=== PATIENT | female | born 2000 | race African-American/Black ===

== ENCOUNTER 2021-06-18 16:37 | Emergency (ER) | payer OTHER ==
[~2021-06-18] VITALS: Ht 157.5 cm; Wt 52.0 kg
--- OUTSIDE RECORDS SUMMARY | 2021-06-18 18:09 | CCD ---
Author Author [facility] Address Unknown Phone Unavailable Support Name Relationship Address Phone [facility] Next Of Kin [address] [place] [address] Unavailable NICOL NGUYEN Next Of Kin [address], [place] [id number] Re-disclosure Warning The records that you are about to access may contain information from federally-assisted alcohol or drug abuse programs. If such information is present, then the following federally mandated warning applies: This information has been disclosed to you from records protected by federal confidentiality rules (42 CFR part 2). The federal rules prohibit you from making any further disclosure of this information unless further disclosure is expressly permitted by the written consent of the person to whom it pertains or as otherwise permitted by 42 CFR part 2. A general authorization for the release of medical or other information is NOT sufficient for this purpose. The Federal rules restrict any use of the information to criminally investigate or prosecute any alcohol or drug abuse patient.The records that you are about to access may contain highly sensitive health information, the redisclosure of which is protected by Article 27-F of the [place] Public Health law. If you continue you may have access to information: Regarding HIV / AIDS; Provided by facilities licensed or operated by the [place] [facility]; or Provided by the [place] Office for People With Developmental Disabilities. If such information is present, then the following [place] mandated warning applies: This information has been disclosed to you from confidential records which are protected by state law. State law prohibits you from making any further disclosure of this information without the specific written consent of the person to whom it pertains, or as otherwise permitted by law. Any unauthorized further disclosure in violation of state law may result in a fine or long term sentence or both. A general authorization for the release of medical or other information is NOT sufficient authorization for further disc losure. Medications No Information Insurance Providers Payer name Policy type / Coverage type Policy ID Covered republican ID Covered republican's relationship to cross Policy Cross Plan Information [facility] [employer] [id number] Problems, Conditions, and Diagnoses No Information Surgeries/Procedures No Information Results No Information Social History No Information
[2021-06-18 18:17] VITALS: BP 112/60
== END 2021-06-18 18:18 | disposition home or self-care (01) ==
LOC: M ED 16:37
DX: G44.209 Tension-type headache, unspecified, not intractable (principal)

== ENCOUNTER 2021-09-29 11:46 | Emergency (ER) | payer OTHER ==
[~2021-09-29] VITALS: Ht 152.4 cm; Wt 49.8 kg
[2021-09-29] MEDS ORDERED: TRAZ-252 PO (11:53)
[2021-09-29] MEDS ORDERED: MAXA10TA14 PO (11:54)
[2021-09-29 14:05] LABS: GC DNA AMPLIFICATION NEGATIVE (NEGATIVE)
[2021-09-29 14:32] VITALS: BP 120/69
== END 2021-09-29 14:43 | disposition home or self-care (01) ==
LOC: M ED 11:46
DX: Z20.2 Contact with and (suspected) exposure to infections with a predominantly sexual mode of transmission (principal); Z79.3 Long term (current) use of hormonal contraceptives

== ENCOUNTER 2022-11-21 08:15 | Emergency (ER) | payer OTHER ==
[~2022-11-21] VITALS: Ht 152.4 cm; Wt 49.1 kg
[~2022-11-21 08:15] MED LIST: RIZA10TA64 PO; TRAZ-252 PO
[2022-11-21] MEDS ORDERED: IBUP200C28 PO (08:33)
[2022-11-21 08:56] LABS: BASO % 0.9 % (0.0-1.0); EOS # 0.1 10^3/uL (0.0-0.5); EOS % 1.4 % (0.0-3.0); HEMOGLOBIN 13.2 g/dl (12.0-15.5); LYMPH # 1.4 10^3/uL (1.5-5.0); LYMPH % 39.1 % (24.0-44.0); MEAN CORPUSCULAR HEMOGLOBIN 29.3 pg (27.0-33.0); MEAN CORPUSCULAR HGB CONC 33.8 g/dl (32.0-36.5); MEAN CORPUSCULAR VOLUME 86.7 fl (80.0-96.0); MONO # 0.3 10^3/uL (0.0-0.8); MONO % 9.8 % (2.0-8.0); NEUTROPHILS # 1.7 10^3/uL (1.5-8.5); NEUTROPHILS % 48.5 % (36.0-66.0); PLATELET COUNT, AUTOMATED 204 10^3/uL (150-450); WHITE BLOOD COUNT 3.5 10^3/uL (4.0-10.0)
[2022-11-21] MEDS ORDERED: METOCLOPRAMIDE INJ 10MG/2ML VIAL IV ONE (09:30)
[2022-11-21] MEDS ORDERED: NS 1,000 ML IV ONE (09:30)
[2022-11-21 09:32] LABS: ALBUMIN 4.3 G/DL (3.2-5.2); ALKALINE PHOSPHATASE 78 U/L (46-116); ALT/SGPT 13 U/L (7.0-40); AST/SGOT 22 U/L (<34); BILIRUBIN,DIRECT 0.1 MG/DL (<0.4); BILIRUBIN,TOTAL 0.5 MG/DL (0.3-1.2); BLOOD UREA NITROGEN 10 MG/DL (9-23); CALCIUM LEVEL 9.7 MG/DL (8.5-10.1); CARBON DIOXIDE LEVEL 25 MMOL/L (20-31); CHLORIDE LEVEL 106 MMOL/L (98-107); CREATININE FOR GFR 0.77 MG/DL (0.55-1.30); GLOMERULAR FILTRATION RATE > 60.0 (>60); GLUCOSE, FASTING 86 MG/DL (60-100); POTASSIUM SERUM 4.1 MMOL/L (3.5-5.1); SODIUM LEVEL 138 MMOL/L (136-145); TOTAL PROTEIN 7.8 G/DL (5.7-8.2)
[2022-11-21 09:34] LABS: THYROID STIMULATING HORMONE 1.026 uIU/ML (0.55-4.78)
[2022-11-21 13:22] VITALS: BP 118/70
== END 2022-11-21 13:24 | disposition home or self-care (01) ==
LOC: M ED 08:15
DX: R51.9 Headache, unspecified (principal)
CPT/HCPCS: 70450; 70544; 70547; 70551; 80047; 80048; 80076; 84443; 84702; 85025; 96374; 96375; 99284; J1100; J2765

== ENCOUNTER 2023-06-27 15:00 | Emergency (ER) | payer OTHER ==
[~2023-06-27] VITALS: Ht 152.4 cm; Wt 44.5 kg
[~2023-06-27 15:00] MED LIST changes: +IBUP200C28 PO
[2023-06-27] MEDS ORDERED: NORT10CA2 PO (15:11)
[2023-06-27] MEDS ORDERED: KETOROLAC 30 MG/ML 1ML VIAL IM ONE (17:05)
[2023-06-27] MEDS ORDERED: LIDOCAINE 5% (LIDODERM) PATCH TD ONE (17:05)
[2023-06-27 18:42] VITALS: BP 116/58; TEMP 100; O2SAT 100
[2023-06-27] MEDS ORDERED: KETO10TAB PO (19:16)
[2023-06-27] MEDS ORDERED: LIDO5DIS41 TD (19:16)
[2023-06-27] MEDS ORDERED: CYCL-707 PO (19:16)
== END 2023-06-27 19:21 | disposition home or self-care (01) ==
LOC: M ED 15:00
DX: M54.50 Low back pain, unspecified (principal); F17.210 Nicotine dependence, cigarettes, uncomplicated
CPT/HCPCS: 72131; 96372; 99283; J1885